=== PATIENT | female | born 1975 | race Caucasian/White ===

== ENCOUNTER 2017-10-24 05:08 | Inpatient (IN) | END 2017-10-27 20:00 | disposition home or self-care (01) | DRG 439 ==

== ENCOUNTER 2018-05-01 14:13 | Inpatient (IN) | payer MEDICAID ==
[~2018-05-01] VITALS: Ht 167.6 cm; Wt 106.6 kg
[~2018-05-01 14:13] MED LIST: DOCU-216 PO; HYDR-4011 PO
[2018-05-01] MEDS ORDERED: SOD CHLORIDE 0.9% 1,000 ML IV STA (16:07)
[2018-05-01] MEDS ORDERED: morphine 4 MG/ML VIAL IV STA (16:07)
[2018-05-01] MEDS ORDERED: LACTATED RINGER'S 1,000 ML IV STA (16:07)
[2018-05-01] MEDS ORDERED: ONDANSETRON 4 MG INJ IV STA (16:07)
[2018-05-01] MEDS ORDERED: ONDANSETRON 4 MG INJ IV PRN (18:00)
[2018-05-01] MEDS ORDERED: ACETAMINOPHEN 325 MG TAB PO PRN (18:00)
--- NOTE | 2018-05-01 18:19 | ERD ---
ER Documentation Chief Complaint Chief Complaint AP since wednesday; hx of pancreatitis; w/ vomiting today; LMP 04/28 HPI 42-year-old female presenting with upper abdominal pain that started today. She was here in October 2017 for similar pain and was diagnosed with gallstone pancreatitis. She states that since last week she has been having pain on and off but today the pain has been constant, nonradiating, and her entire upper abdomen. She had one episode of nonbloody and nonbilious vomiting today. The pain is constant, no alleviating or exacerbating factors. No fevers or chills. No diarrhea, hematochezia, melena, or constipation. She was supposed to follow- up with a surgeon outpatient for an elective cholecystectomy but she never did. ROS All systems reviewed and are negative except as per history of present illness. Medications Home Meds Discontinued Scripts Hydrocodone/Acetaminophen ([place] 5-325 Tablet) 1 Each Tablet, 1 EACH PO Q4H WHILE AWAKE PRN for PAIN, #21 TAB Prov:BETTY ANDRADE M. 10/27/17 Docusate Sodium (Dok) 100 Mg Capsule, 100 MG PO Q12H PRN for CONSTIPATION, #14 CAP Prov:BETTY ANDRADE M. 10/27/17 Allergies Allergies: Coded Allergies: No Known Allergy (Unverified , 05/01/18) PMhx/Soc Medical and Surgical Hx: pt denies Medical Hx, pt denies Surgical Hx History of Surgery: No Anesthesia Reaction: No Hx Neurological Disorder: No Hx Respiratory Disorders: No Hx Cardiac Disorders: No Hx Psychiatric Problems: No Hx Miscellaneous Medical Probl: No Hx Alcohol Use: No Hx Substance Use: No Hx Tobacco Use: No Smoking Status: Never smoker FmHx Family History: No diabetes Physical Exam Vitals Vital Signs Date Temp Pulse Resp B/P (MAP) Pulse Ox O2 O2 Flow FiO2 Time Delivery Rate 05/01/18 97.8 73 20 158/87 100 14:17 (110) Physical Exam Const: No acute distress, nontoxic Head: Atraumatic Eyes: Normal Conjunctiva ENT: Normal External Ears, Nose and Mouth. Neck: Full range of motion. No meningismus. Resp: Clear to auscultation bilaterally Cardio: Regular rate and rhythm, no murmurs Abd: Soft, right upper quadrant and epigastric tenderness to palpation with no rebound or guarding, non distended. Normal bowel sounds Skin: No petechiae or rashes Back: No midline or flank tenderness Ext: No cyanosis, or edema Neur: Awake and alert Psych: Normal Mood and Affect Result Diagram: 05/01/18 1615 05/01/18 1615 Results 24 hrs Laboratory Tests Test 05/01/18 16:15 White Blood Count 14.5 10^3/ul Red Blood Count 4.72 10^6/ul Hemoglobin 13.1 g/dl Hematocrit 40.6 % Mean Corpuscular Volume 86.0 fl Mean Corpuscular Hemoglobin 27.8 pg Mean Corpuscular Hemoglobin Concent 32.3 g/dl Red Cell Distribution Width 13.3 % Platelet Count 347 10^3/UL Mean Platelet Volume 9.7 fl Immature Granulocytes % 0.500 % Neutrophils % 81.2 % Lymphocytes % 12.9 % Monocytes % 5.0 % Eosinophils % 0.1 % Basophils % 0.3 % Nucleated Red Blood Cells % 0.0 /100WBC Immature Granulocytes # 0.070 10^3/ul Neutrophils # 11.7 10^3/ul Lymphocytes # 1.9 10^3/ul Monocytes # 0.7 10^3/ul Eosinophils # 0.0 10^3/ul Basophils # 0.1 10^3/ul Nucleated Red Blood Cells # 0.0 10^3/ul Urine Color OPAL Urine Clarity CLOUDY Urine pH 5.0 Urine Specific [place] 1.025 Urine Ketones 1+ mg/dL Urine Nitrite NEGATIVE mg/dL Urine Bilirubin 2+ mg/dL Urine Urobilinogen 2+ mg/dL Urine Leukocyte Esterase 2+ Bree/ul Urine Microscopic RBC 6 /HPF Urine Microscopic WBC 41 /HPF Urine Squamous Epithelial Cells MANY /HPF Urine Bacteria FEW /HPF Urine Mucus MODERATE /HPF Urine Hemoglobin 3+ mg/dL Urine Glucose NEGATIVE mg/dL Urine Total Protein 2+ mg/dl Urine Test NEGATIVE Sodium Level 140 mmol/L Potassium Level 3.6 mmol/L Chloride Level 104 mmol/L Carbon Dioxide Level 24 mmol/L Anion Gap 12 Blood Urea Nitrogen 10 mg/dl Creatinine 0.82 mg/dl Est Glomerular Filtrat Rate mL/min > 60 mL/min Glucose Level 111 mg/dl Calcium Level 9.3 mg/dl Total Bilirubin 1.1 mg/dl Direct Bilirubin 0.00 mg/dl Indirect Bilirubin 1.1 mg/dl Aspartate Amino Transf (AST/SGOT) 336 IU/L Alanine Aminotransferase (ALT/SGPT) 609 IU/L Alkaline Phosphatase 221 IU/L Total Protein 8.5 g/dl Albumin 4.7 g/dl Globulin 3.80 g/dl Albumin/Globulin Ratio 1.23 Lipase 45256 U/L Current Medications Medications Dose Sig/Marva Start Time Status Last (Trade) Ordered Route PRN Stop Time Admin Dose Reason Admin Sodium 1,000 ml @ Q1H STAT 05/01/18 DC 05/01/18 Chloride 1,000 mls/hr IV 16:07 16:36 05/01/18 17:06 Lactated 1,000 ml @ Q1H STAT 05/01/18 DC 05/01/18 Ringer's 1,000 mls/hr IV 16:07 16:36 05/01/18 17:06 Morphine 4 mg ONCE STAT 05/01/18 DC 05/01/18 Sulfate IV 16:07 16:36 (morphine) 05/01/18 16:09 Ondansetron 4 mg ONCE STAT 05/01/18 DC 05/01/18 HCl (Zofran IV 16:07 16:36 Inj) 05/01/18 16:09 Ondansetron 4 mg BRIDGE ORDER 05/01/18 HCl (Zofran PRN IV 18:00 Inj) NAUSEA AND/OR 05/02/18 17:59 VOMITING 650 mg ER BRIDGE 05/01/18 Acetaminophen PRN PO MILD 18:00 (Tylenol PAIN(1-3)OR 05/02/18 17:59 Tab) ELEVATED TEMP Procedures/MDM EMERGENT LABS AND DIAGNOSTIC STUDIES: Lab Results above were reviewed and interpreted by me. CBC: Leukocytosis CMP:no evidence of electrolyte abnormality or renal failure. AST, ALT, and alk phos elevated. No bili elevation. Lipase: Significantly elevated consistent with acute pancreatitis UA: no evidence of infection abnormal, possible evidence of infection. Urine culture sent and pending Radiology Results as interpreted by Radiology below were reviewed by Wai Antunez MD: Chest x-ray shows no acute abnormalities Ultrasound does not show evidence of acute cholecystitis Initial Nursing notes reviewed. Previous Medical Records requested via the Electronic Health Record. EMERGENCY DEPARTMENT COURSE / MEDICAL DECISION MAKING: Patient is presenting with upper abdominal pain. Vitals are stable and she is afebrile. Labs did show evidence of pancreatitis, likely secondary to choledocholithiasis, especially given liver enzyme and alk phos elevation. I doubt acute cholangitis. No evidence of cholecystitis. Symptoms are improved after IV fluids, antiemetics, and analgesics. Patient will be admitted for IV fluids, pain control, specialist consultation and stabilization. Accepting Care Team: Current data and ongoing care discussed. Time: Time of admission Primary Provider: Dr. Gilbert Mcdonough Diagnosis: Primary Impression: Pancreatitis Chronicity: acute Pancreatitis type: biliary Acute pancreatitis complication: unspecified Qualified Codes: K85.10 - Biliary acute pancreatitis without necrosis or infection Additional Impression: Transaminitis Condition: JUVENAL Chong MD May 01, 2018 18:19
--- NOTE | 2018-05-01 18:41 | HP ---
Date/Time of Note Date/Time of Note DATE: 05/01/18 TIME: 18:38 Assessment/Plan VTE Prophylaxis SCD applied (from Nsg): Yes Pharmacological prophylaxis: heparin Lines/Catheters IV Catheter Type (from Nrsg): Saline Lock Assessment/Plan Hospital Course 42 yo female who presents with pancreatitis, likely 2/2 gallstones - MRCP to see if stone in ducts - ERCP if needed, Chetty consulted - IVF - Trend LFTs - NPO for now Result Diagram: 05/01/18 1615 05/01/18 1615 Results 24hrs Laboratory Tests Test 05/01/18 16:15 White Blood Count 14.5 #H Red Blood Count 4.72 Hemoglobin 13.1 Hematocrit 40.6 Mean Corpuscular Volume 86.0 Mean Corpuscular Hemoglobin 27.8 L Mean Corpuscular Hemoglobin Concent 32.3 Red Cell Distribution Width 13.3 Platelet Count 347 Mean Platelet Volume 9.7 Immature Granulocytes % 0.500 H Neutrophils % 81.2 H Lymphocytes % 12.9 L Monocytes % 5.0 Eosinophils % 0.1 Basophils % 0.3 Nucleated Red Blood Cells % 0.0 Immature Granulocytes # 0.070 H Neutrophils # 11.7 H Lymphocytes # 1.9 Monocytes # 0.7 Eosinophils # 0.0 Basophils # 0.1 Nucleated Red Blood Cells # 0.0 Urine Color OPAL Urine Clarity CLOUDY A Urine pH 5.0 Urine Specific [place] 1.025 Urine Ketones 1+ H Urine Nitrite NEGATIVE Urine Bilirubin 2+ H Urine Urobilinogen 2+ H Urine Leukocyte Esterase 2+ H Urine Microscopic RBC 6 H Urine Microscopic WBC 41 H Urine Squamous Epithelial Cells MANY A Urine Bacteria FEW A Urine Mucus MODERATE Urine Hemoglobin 3+ H Urine Glucose NEGATIVE Urine Total Protein 2+ H Urine Test NEGATIVE Sodium Level 140 Potassium Level 3.6 Chloride Level 104 Carbon Dioxide Level 24 Anion Gap 12 Blood Urea Nitrogen 10 Creatinine 0.82 Est Glomerular Filtrat Rate mL/min > 60 Glucose Level 111 Calcium Level 9.3 Total Bilirubin 1.1 Direct Bilirubin 0.00 Indirect Bilirubin 1.1 Aspartate Amino Transf (AST/SGOT) 336 H Alanine Aminotransferase (ALT/SGPT) 609 H Alkaline Phosphatase 221 H Total Protein 8.5 H Albumin 4.7 Globulin 3.80 H Albumin/Globulin Ratio 1.23 Lipase 85827 H HPI/ROS Admit Date/Time Admit Date/Time Hx of Present Illness 42 yo female with h/o gallstones who presents with abdominal pain Has had RUQ pain off and on during the past week. Resolved for a couple days then came back severe today. Came to ED where lipase very elevated. CT showing gallstones. Patient with known history of gallstones she says. Denies etoh use. She has received morphine and is now comfortable PMH/Family/Social Past Medical History Medical History: no pertinent history Medications Current Medications Ondansetron HCl (Zofran Inj) 4 mg BRIDGE ORDER PRN IV NAUSEA AND/OR VOMITING; Start 05/01/18 at 18:00; Stop 05/02/18 at 17:59 Acetaminophen (Tylenol Tab) 650 mg ER BRIDGE PRN PO MILD PAIN(1-3)OR ELEVATED TEMP; Start 05/01/18 at 18:00; Stop 05/02/18 at 17:59 Coded Allergies: No Known Allergy (Unverified , 05/01/18) Past Surgical History Past Surgical Hx: no surgical history Family History Significant Family History: no pertinent family hx Social History Alcohol Use: none Smoking Status: Never smoker Drug Use: none Exam/Review of Systems Vital Signs Vitals Vital Signs Date Temp Pulse Resp B/P (MAP) Pulse Ox O2 O2 Flow FiO2 Time Delivery Rate 05/01/18 97.8 85 18 122/83 100 18:28 (96) Exam Constitutional: alert, oriented, well developed Psych: no complaints, nl mood/affect Head: normocephalic, atraumatic Eyes: nl conjunctiva, EOMI, nl lids, nl sclera, PERRL ENMT: nl external ears & nose, nl lips & teeth, nl nasal mucosa & septum Neck: supple, non-tender Respiratory: clear to auscultation, normal air movement Cardiovascular: regular rate and rhythm, nl pulses Gastrointestinal: soft, nl liver, spleen, non-tender Musculoskeletal: nl extremities to inspection Extremities: normal pulses Neurological: LINUX SYSTEM ENGINEER II-XII intact, nl mental status, nl speech, nl strength Skin: nl turgor; No rash or lesions Lymph: nl lymph nodes NANDO VILLANUEVA MD May 01, 2018 18:41
[2018-05-01] MEDS ORDERED: NACL 0.9% 3 ML SYG IV SCH (19:00)
[2018-05-01] MEDS ORDERED: HYDROmorphONE 0.5 MG/0.5 ML SYG IV PRN (19:00)
[2018-05-01 19:43] VITALS: BP 124/63; PULSE 64; RESP 18
[2018-05-01] MEDS: SOD CHLORIDE 0.9% 1,000 ML IV SCH (20:10)
[2018-05-01] MEDS: HYDROCODONE/APAP (5/325) TAB PO PRN (22:43)
[2018-05-01 22:58] VITALS: Ht 167.6 cm; Wt 106.6 kg
[2018-05-02 01:33] VITALS: BP 112/58; PULSE 64; RESP 18
[2018-05-02] MEDS: SOD CHLORIDE 0.9% 1,000 ML IV SCH ×4 (04:01→22:26)
[2018-05-02] MEDS: HYDROCODONE/APAP (5/325) TAB PO PRN (04:55)
[2018-05-02 07:24] VITALS: BP 109/58; PULSE 68; RESP 16
--- NOTE | 2018-05-02 12:19 | CONS ---
DATE OF ADMISSION: 05/01/2018 DATE OF CONSULTATION: TYPE OF CONSULTATION: Gastroenterology. Dear Dr. Hunt: Thank you for asking me to see Mrs. Byrnes in GI consultation. HISTORY OF PRESENT ILLNESS: The patient, as you know, is a 42-year-old female who is admitt ed at this time to the hospital because of abdominal pain. She was found to have gallstones and she was also found to have gallstone pancreatitis; hence, the GI consultation is requested. The patient says she was hospitalized here about 6 months ago for similar problem, but she was found to have gall stones and cholecystectomy was not performed because of pancreatitis. The patient has been having abdominal pain for the past several days and she has had nausea, little v omiting. No fever, no jaundice. PAST MEDICAL HISTORY: Includes similar episode in 10/2017. HOSPITALIZATIONS: Denies. REVIEW OF SYSTEM: Grossly unremarkable. SOCIAL HISTORY: The patient drinks alcohol occasionally. She works in a factory. PHYSICAL EXAMINATION: GENERAL: The patient is a 42-year-old female who at this time, she is alert. VITAL SIGNS: She is afebrile, temperature 98.1, blood pressure is 109/58. CARDIOVASCULAR: Normal heart sounds. RESPIRATORY: Normal breath sounds. ABDOMEN: Showed unremarkable findings. LABORATORY WORKUP: WBC is 8800. It came down from 14,500, hemoglobin is 10.7. The potassium is 3.8 . Bilirubin 0, indirect is 1.1, AST 336, ALT 609, alkaline phosphatase is 221. They did come down t o AST 141, ALT 368, alkaline phosphatase 147. The lipase is 33,000 yesterday. Today, it is 4161. DIAGNOSTIC DATA: Ultrasound showed evidence of gallstones and sludge within the gallbladder. CLINICAL IMPRESSION: The patient has evidence of gallstone pancreatitis, although it appears that sh e may have passed a stone from the ampulla, which caused a gallstone pancreatitis. Certainly one patricia uld rule out the possibility of a choledocholithiasis. PLAN: At this time, I recommend await for MRCP; however, ERCP will be performed to rule out choledoc holithiasis and then remove the stones. Meanwhile, I recommend surgical consultation. Once again, doctor, thank you for this consultation. Dictated By: RACHEL CASTRO/ALONSO Conf#: [id number] DID#: [id number] CC: NANDO HUNT MD;*EndCC*
[2018-05-02 14:54] VITALS: BP 128/61; PULSE 73; RESP 16
--- NOTE | 2018-05-02 15:05 | PN ---
Date/Time of Note Date/Time of Note DATE: 05/02/18 TIME: 15:00 Assessment/Plan VTE Prophylaxis Risk score (from Nsg)>0 risk: 1 Pharmacological prophylaxis: NA/contraindicated Pharm contraindication: low risk/ambulating Lines/Catheters IV Catheter Type (from Nrsg): Peripheral IV Urinary Cath still in place: No Assessment/Plan Hospital Course 1. Cholelithiasis with choledocholithiasis and gallstone pancreatitis MRCP shows cholelithiasis and choledocholithiasis Plan for ERCP today Continue n.p.o. status and IV fluids Surgery consultation with Dr. Ayala obtained Monitor lipase 2. Reactive leukocytosisresolved 3. Transaminitis secondary to choledocholithiasis Plan for ERCP Prophylaxis: Ambulation Result Diagram: 05/02/18 0517 05/02/18 0517 Results 24hrs Laboratory Tests Test 05/01/18 16:15 05/02/18 05:17 05/02/18 13:36 White Blood Count 14.5 #H 8.8 # Red Blood Count 4.72 3.83 L Hemoglobin 13.1 10.7 L Hematocrit 40.6 33.6 L Mean Corpuscular Volume 86.0 87.7 Mean Corpuscular Hemoglobin 27.8 L 27.9 L Mean Corpuscular Hemoglobin Concent 32.3 31.8 L Red Cell Distribution Width 13.3 13.5 Platelet Count 347 278 Mean Platelet Volume 9.7 9.8 Immature Granulocytes % 0.500 H 0.500 H Neutrophils % 81.2 H 61.3 Lymphocytes % 12.9 L 30.9 Monocytes % 5.0 5.9 Eosinophils % 0.1 1.1 Basophils % 0.3 0.3 Nucleated Red Blood Cells % 0.0 0.0 Immature Granulocytes # 0.070 H 0.040 H Neutrophils # 11.7 H 5.4 Lymphocytes # 1.9 2.7 Monocytes # 0.7 0.5 Eosinophils # 0.0 0.1 Basophils # 0.1 0.0 Nucleated Red Blood Cells # 0.0 0.0 Urine Color OPAL Urine Clarity CLOUDY A Urine pH 5.0 Urine Specific [place] 1.025 Urine Ketones 1+ H Urine Nitrite NEGATIVE Urine Bilirubin 2+ H Urine Urobilinogen 2+ H Urine Leukocyte Esterase 2+ H Urine Microscopic RBC 6 H Urine Microscopic WBC 41 H Urine Squamous Epithelial Cells MANY A Urine Bacteria FEW A Urine Mucus MODERATE Urine Hemoglobin 3+ H Urine Glucose NEGATIVE Urine Total Protein 2+ H Urine Test NEGATIVE Sodium Level 140 140 Potassium Level 3.6 3.8 Chloride Level 104 109 Carbon Dioxide Level 24 24 Anion Gap 12 7 Blood Urea Nitrogen 10 11 Creatinine 0.82 0.69 Est Glomerular Filtrat Rate mL/min > 60 > 60 Glucose Level 111 83 Calcium Level 9.3 8.4 Total Bilirubin 1.1 0.7 Direct Bilirubin 0.00 0.00 Indirect Bilirubin 1.1 0.7 Aspartate Amino Transf (AST/SGOT) 336 H 141 H Alanine Aminotransferase (ALT/SGPT) 609 H 368 H Alkaline Phosphatase 221 H 147 H Total Protein 8.5 H 6.3 # Albumin 4.7 3.4 # Globulin 3.80 H 2.90 Albumin/Globulin Ratio 1.23 1.17 Lipase 03217 H 4161 H Hemoglobin A1c 5.3 Prothrombin Time 12.8 Prothrombin Time Ratio 1.0 INR International Normalized Ratio 0.95 Subjective 24 Hr Interval Summary Constitutional: no complaints Exam/Review of Systems Vital Signs Vitals Vital Signs Date Temp Pulse Resp B/P (MAP) Pulse Ox O2 O2 Flow FiO2 Time Delivery Rate 05/02/18 98.7 73 16 128/61 100 Room Air 14:54 (83) Intake and Output 05/01/18 05/01/18 05/02/18 1414:59 22:59 06:59 IntakeIntake Total 1350 ml BalanceBalance 1350 ml Exam Constitutional: alert, oriented Cardiovascular: regular rate and rhythm Gastrointestinal: soft; No distended Musculoskeletal: nl extremities to inspection Medications Medications Current Medications Sodium Chloride 1,000 ml @ 125 mls/hr Q8H IV Last administered on 05/02/18at 14:02; Admin Dose 125 MLS/HR; Start 05/01/18 at 18:36 IV Flush (NS 3 ml) 3 ml PER PROTOCOL IV ; Start 05/01/18 at 19:00 Acetaminophen/ Hydrocodone Bitart ([place] (5/325)) 2 tab Q6H PRN PO SEVERE PAIN LEVEL 7-10 Last administered on 05/02/18at 04:55; Admin Dose 2 TAB; Start 05/01/18 at 19:00 Hydromorphone HCl (Dilaudid) 0.5 mg Q4H PRN IV SEVERE PAIN LEVEL 7-10; Start 05/01/18 at 19:00 LAUREN RESENDIZ May 02, 2018 15:05
[2018-05-02 20:14] VITALS: BP 140/65; PULSE 68; RESP 18
[2018-05-02] MEDS ORDERED: ZOLPIDEM 5 MG TAB PO ONE (22:18)
[2018-05-03] VITALS (16 sets, daily range): BP systolic 116–135; BP diastolic 61–74; PULSE 60–96; RESP 17–21
[2018-05-03] MEDS: SOD CHLORIDE 0.9% 1,000 ML IV SCH ×4 (01:34→20:00)
--- NOTE | 2018-05-03 13:31 | PREAC ---
Date/Time of Note Date/Time of Note DATE: 05/03/18 TIME: 13:29 Anesthesia Eval and Record Evaluation Time Pre-Procedure Interview DATE: 05/03/18 TIME: 13:29 Age 42 Sex female NPO: 8 hrs Preoperative diagnosis Biliary stones Planned procedure ERCP Past Medical History Past Medical History: None Surgery & Anesthesia Issues No known issue Meds Anticoagulation: No Beta Pippa within 24 hr: No Reason Beta Pippa not given: Pt. not on B-Pippa Discontinued Scripts Hydrocodone/Acetaminophen ([place] 5-325 Tablet) 1 Each Tablet, 1 EACH PO Q4H WHILE AWAKE PRN for PAIN, #21 TAB Prov:LUPETILA ChavisLAYTON M. 10/27/17 Docusate Sodium (Dok) 100 Mg Capsule, 100 MG PO Q12H PRN for CONSTIPATION, #14 CAP Prov:BETTY ANDRADE M. 10/27/17 Current Medications Sodium Chloride 1,000 ml @ 125 mls/hr Q8H IV Last administered on 05/03/18at 06:42; Admin Dose 125 MLS/HR; Start 05/01/18 at 18:36 IV Flush (NS 3 ml) 3 ml PER PROTOCOL IV ; Start 05/01/18 at 19:00 Acetaminophen/ Hydrocodone Bitart ([place] (5/325)) 2 tab Q6H PRN PO SEVERE PAIN LEVEL 7-10 Last administered on 05/02/18at 04:55; Admin Dose 2 TAB; Start 05/01/18 at 19:00 Hydromorphone HCl (Dilaudid) 0.5 mg Q4H PRN IV SEVERE PAIN LEVEL 7-10; Start 05/01/18 at 19:00 Meds reviewed: Yes Allergies Coded Allergies: No Known Allergy (Unverified , 05/01/18) Allergies Reviewed: Yes Labs/Studies Labs Reviewed: Reviewed by anesthesiologist Result Diagram: 05/03/1842 05/03/18 0542 Laboratory Tests 05/03/18 05:42 test: Negative Studies: ECG Pre-procedure Exam Last vitals Vital Signs Date Temp Pulse Resp B/P (MAP) Pulse Ox O2 O2 Flow FiO2 Time Delivery Rate 05/03/18 98.6 70 20 116/61 100 Room Air 07:50 (79) Airway: Adequate mouth opening, Adequate thyromental dist Mallampati: Mallampati II Teeth: Normal Lung: Normal Heart: Normal ASA Physical Status ASA physical status: 2 Emergency: None Planned Anesthetic General/MAC: ETT Planned Pain Management Parenteral pain med Pre-operative Attestations Prior to commencing anesthesia and surgery, the patient was re-evaluated, there was verification of: *The patient's identity *The results of appropriate recent lab work and preoperative vital signs *The above evaluation not changing prior to induction *Anesthetic plan, risk benefits, alternative and complications discussed with patient/family; questions answered; patient/family understands, accepts and wishes to proceed. JUAN DIEGO WALKER MD May 03, 2018 13:31
--- NOTE | 2018-05-03 13:54 | PN ---
Date/Time of Note Date/Time of Note DATE: 05/03/18 TIME: 13:53 Assessment/Plan VTE Prophylaxis Risk score (from Nsg)>0 risk: 1 Pharmacological prophylaxis: NA/contraindicated Pharm contraindication: low risk/ambulating Lines/Catheters IV Catheter Type (from Nrsg): Peripheral IV Urinary Cath still in place: No Assessment/Plan Hospital Course 1. Cholelithiasis with choledocholithiasis and gallstone pancreatitis MRCP shows cholelithiasis and choledocholithiasis Plan for ERCP today Continue n.p.o. status and IV fluids Surgery consultation with Dr. Ayala obtained Monitor lipase 2. Reactive leukocytosisresolved 3. Transaminitis secondary to choledocholithiasis Plan for ERCP Prophylaxis: Ambulation Result Diagram: 05/03/18 0542 05/03/18 0542 Results 24hrs Laboratory Tests Test 05/03/18 05:42 White Blood Count 9.2 Red Blood Count 3.85 L Hemoglobin 10.9 L Hematocrit 33.5 L Mean Corpuscular Volume 87.0 Mean Corpuscular Hemoglobin 28.3 L Mean Corpuscular Hemoglobin Concent 32.5 Red Cell Distribution Width 13.2 Platelet Count 270 Mean Platelet Volume 9.7 Immature Granulocytes % 0.500 H Neutrophils % 69.8 Lymphocytes % 23.1 Monocytes % 5.4 Eosinophils % 0.8 Basophils % 0.4 Nucleated Red Blood Cells % 0.0 Immature Granulocytes # 0.050 H Neutrophils # 6.4 Lymphocytes # 2.1 Monocytes # 0.5 Eosinophils # 0.1 Basophils # 0.0 Nucleated Red Blood Cells # 0.0 Sodium Level 138 Potassium Level 3.9 Chloride Level 110 Carbon Dioxide Level 19 L Anion Gap 9 Blood Urea Nitrogen 10 Creatinine 0.58 Est Glomerular Filtrat Rate mL/min > 60 Glucose Level 72 Calcium Level 8.6 Total Bilirubin 0.5 Direct Bilirubin 0.00 Indirect Bilirubin 0.5 Aspartate Amino Transf (AST/SGOT) 60 H Alanine Aminotransferase (ALT/SGPT) 264 H Alkaline Phosphatase 138 H Total Protein 6.7 Albumin 3.7 Globulin 3.00 Albumin/Globulin Ratio 1.23 Lipase 454 H Subjective 24 Hr Interval Summary Constitutional: no complaints Exam/Review of Systems Vital Signs Vitals Vital Signs Date Temp Pulse Resp B/P (MAP) Pulse Ox O2 O2 Flow FiO2 Time Delivery Rate 05/03/18 98.6 70 20 116/61 100 Room Air 07:50 (79) Intake and Output 05/02/18 05/02/18 05/03/18 1515:00 23:00 07:00 IntakeIntake Total 650 ml 1000 ml 1000 ml BalanceBalance 650 ml 1000 ml 1000 ml Exam Constitutional: alert, oriented Respiratory: clear to auscultation Cardiovascular: regular rate and rhythm Gastrointestinal: soft; No distended Musculoskeletal: nl extremities to inspection Medications Medications Current Medications Sodium Chloride 1,000 ml @ 125 mls/hr Q8H IV Last administered on 05/03/18at 06:42; Admin Dose 125 MLS/HR; Start 05/01/18 at 18:36 IV Flush (NS 3 ml) 3 ml PER PROTOCOL IV ; Start 05/01/18 at 19:00 Acetaminophen/ Hydrocodone Bitart ([place] (5/325)) 2 tab Q6H PRN PO SEVERE PAIN LEVEL 7-10 Last administered on 05/02/18at 04:55; Admin Dose 2 TAB; Start 05/01/18 at 19:00 Hydromorphone HCl (Dilaudid) 0.5 mg Q4H PRN IV SEVERE PAIN LEVEL 7-10; Start 05/01/18 at 19:00 LAUREN RESENDIZ May 03, 2018 13:54
[2018-05-03] MEDS ORDERED: MIDAZOLAM 1 MG/ML 2 ML INJ ONE (14:07)
[2018-05-03] MEDS ORDERED: FENTAnyl 50 MCG/ML VIAL ONE (14:08)
[2018-05-03] MEDS ORDERED: INDOMETHACIN 50 MG SUPP PR ONE (14:30)
[2018-05-03] MEDS ORDERED: PROPOFOL 20 ML ONE (15:00)
[2018-05-03] MEDS ORDERED: ONDANSETRON 4 MG INJ ONE (15:00)
[2018-05-03] MEDS ORDERED: ROCURONIUM 50 MG INJ ONE (15:00)
[2018-05-03] MEDS ORDERED: LIDOCAINE 2% (SDV) 5 ML INJ ONE (15:00)
[2018-05-03] MEDS ORDERED: GLYCOPYRROLATE 0.4 MG INJ ONE (15:00)
[2018-05-03] MEDS ORDERED: NEOSTIGMINE 3 MG/3 ML SYRINGE ONE (15:00)
[2018-05-03] MEDS ORDERED: CEFAZOLIN 1 GM INJ ONE (15:05)
--- NOTE | 2018-05-03 15:11 | OPR ---
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 sphincterotomy performed filling defect noted in distal cbd. balloon yielded sludge from distal cbd. cbd stent placed RACHEL OBRIEN MD May 03, 2018 15:11
--- NOTE | 2018-05-03 15:21 | PAC ---
Date/Time of Note Date/Time of Note DATE: 05/03/18 TIME: 15:21 Post-Anesthesia Notes Post-Anesthesia Note Last documented vital signs Vital Signs Date Temp Pulse Resp B/P (MAP) Pulse Ox O2 O2 Flow FiO2 Time Delivery Rate 05/03/18 98.6 70 20 116/61 100 Room Air 07:50 (79) Activity: WNL Respiratory function: WNL Cardiovascular function: WNL Mental status: Baseline Pain reasonably controlled: Yes Hydration appropriate: Yes Nausea/Vomiting absent: Yes Comments BP:120/56,pulse:78, spo2:100%, T:98,8 JUAN DIEGO WALKER MD May 03, 2018 15:21
[2018-05-03] MEDS ORDERED: hydrALAzine 20 MG INJ IV PRN (15:30)
[2018-05-03] MEDS ORDERED: LABETALOL HCL 20MG INJ IV PRN (15:30)
[2018-05-03] MEDS ORDERED: DIPHENHYDRAMINE 50 MG INJ IV PRN (15:30)
[2018-05-03] MEDS ORDERED: FENTAnyl 50 MCG/ML VIAL IV PRN (15:30)
[2018-05-03] MEDS ORDERED: HYDROmorphONE 1 MG/5 ML IV SYRINGE IV PRN ×2 (15:30)
[2018-05-03] MEDS ORDERED: METOCLOPRAMIDE 10 MG INJ IV PRN (15:30)
[2018-05-03] MEDS ORDERED: ONDANSETRON 4 MG INJ IV PRN (15:30)
[2018-05-03] MEDS ORDERED: MEPERIDINE 25 MG INJ IV PRN (15:30)
--- NOTE | 2018-05-03 15:49 | GILP ---
DATE OF PROCEDURE: NAME OF PROCEDURE: ERCP, sphincterotomy, balloon sweep and CBD stent placement. PREOPERATIVE DIAGNOSIS: The patient presenting with history of abdominal pain, evidence of gallstone pancreatitis, dilated common bile duct on the MRCP and CT. Stricture noted on the MRCP in the dista l bile duct to rule out malignant stricture, benign stricture, common bile duct stone. POSTOPERATIVE DIAGNOSES: The findings seem to be consistent with a benign distal CBD stricture. The dilated CBD filling defect noted in the CBD. Upon balloon sweeping, sludge was removed but no large stone was noted. DESCRIPTION OF PROCEDURE: After informed written consent was obtained, the patient was intubated by anesthesiologist, Dr. Casas. When the patient became somnolent, the Olympus video side-viewing duod enoscope was inserted into the oropharynx, then into the esophagus and subsequently into the stomach and then into the duodenum. Ampulla was located in normal location with normal morphology. All the ampulla appeared to be rather prominent at the papillary opening. By using the Dreamtome, cannulatio n of the common bile duct was performed. Common bile duct was found to be dilated. This seems to be evidence of a stricture in the distal common bile duct. Also upon careful observation there is evid ence of a large filling defect noted in the distal common bile duct. It was felt this could be a sto ne. At this time, by using the cutting wire of the Dreamtome, sphincterotomy was performed. About 1 2 mm cut of the ampulla was made by using the cutting wire of the Dreamtome. At this time, Dreamtome was removed. Stone extraction balloon was inserted into the common hepatic duct and attempts were m gilma to sweep the common bile duct. Also, it is to be noted the stricture in the distal bile duct. H ence, the large stone was not removed, but upon balloon sweeping, some amount of sludge was found to be exiting through the papillary opening and again after multiple sweepings, no large filling defect noted. At this time, a 10 x 7 Raymond type of endobiliary prosthesis was inserted into the common bile duct across the ampulla into the duodenum. Photographs were obtained and the procedure was term inated. PLAN: Recommend proceed with laparoscopic cholecystectomy. Dictated By: RACHEL CASTRO/ALONSO Conf#: [id number] DID#: [id number] CC: LAUREN RESENDIZ MD;*[facility]*
[2018-05-03] MEDS ORDERED: ZOLPIDEM 5 MG TAB PO ONE (21:00)
[2018-05-04 02:00] VITALS: BP 134/61; PULSE 72; RESP 18
[2018-05-04] MEDS: SOD CHLORIDE 0.9% 1,000 ML IV SCH ×2 (02:36→03:56)
[2018-05-04] MEDS: HYDROCODONE/APAP (5/325) TAB PO PRN ×2 (03:55→11:11)
[2018-05-04 07:35] VITALS: BP 124/63; PULSE 59; RESP 17
--- NOTE | 2018-05-04 12:37 | PDOCDIS ---
Discharge Instructions CONDITION [id number] Patient Condition: [id number] Good HOME CARE INSTRUCTIONS: [id number] Diet Instructions: [id number] Reduced Calorie ACTIVITY: [id number] Activity Restrictions: [id number] No Restrictions FOLLOW UP/APPOINTMENTS Follow-up Plan Follow-up with PCP in 1-2 weeks, follow-up with Dr. Browning of GI in 2-3 weeks LAUREN RESENDIZ May 04, 2018 12:37
--- NOTE | 2018-05-04 12:45 | DS ---
Date/Time of Note Date/Time of Note DATE: 05/04/18 TIME: 12:38 Discharge Summary Admission/Discharge Info Admit Date/Time May 01, 2018 at 17:52 Discharge Date/Time May 04, 2018 Discharge Diagnosis 1. Benign distal CBD stricture status post ERCP, sphincterotomy, balloon sweep and CBD stent placement No large stone noted with ERCP, no indication for lap cholecystectomy at this time per surgery Surgery consultation with Dr. Ayala was obtained 2. Pancreatitis secondary to above-resolving Patient tolerating a p.o. diet 3. Reactive leukocytosisresolved 4. Transaminitis secondary to above 5. Morbid obesity Lifestyle changes Patient Condition: Good Hospital Course Patient is a 42-year-old female with a history of obesity who presents with abdominal pain and was found to have pancreatitis and transaminitis. MRCP did show CBD dilation, GI consultation was obtained and ERCP showed benign CBD stricture status post sphincterotomy and balloon sweep with stent placement. Sludge was found but no no large stones were noted and per conversation with surgery there was no indication for a laparoscopic cholecystectomy. Patient's transaminitis and pancreatitis was resolving and patient was stable for DC. On day of discharge patient's vitals, labs and physical exam are stable patient has no acute complaints and questions are answered. Home Meds Discontinued Scripts Hydrocodone/Acetaminophen ([place] 5-325 Tablet) 1 Each Tablet, 1 EACH PO Q4H WHILE AWAKE PRN for PAIN, #21 TAB Prov:BETTY ANDRADE 10/27/17 Docusate Sodium (Dok) 100 Mg Capsule, 100 MG PO Q12H PRN for CONSTIPATION, #14 CAP Prov:BETTY ANDRADE 10/27/17 Follow-up Plan Follow-up with PCP in 1-2 weeks, follow-up with Dr. Browning of GI in 2-3 weeks Primary Care Provider Care Physician No Primary Time spent on discharge: > 30 minutes LAUREN RESENDIZ May 04, 2018 12:45
== END 2018-05-04 15:35 | disposition home or self-care (01) | DRG 444 ==
LOC: E/R 14:13 → 2NE 17:52
PROVIDERS: ADMIT Internal Medicine; ATTEND Internal Medicine
PROC: 0F798DZ Dilation of Common Bile Duct with Intraluminal Device, Via Natural or Artificial Opening Endoscopic (ICD-10-PCS; principal; 2018-05-03 13:00)
DX: K80.71 Calculus of gallbladder and bile duct without cholecystitis with obstruction (principal); K85.10 Biliary acute pancreatitis without necrosis or infection; E66.01 Morbid (severe) obesity due to excess calories; R74.0 Nonspecific elevation of levels of transaminase and lactic acid dehydrogenase [LDH]; Z68.37 Body mass index [BMI] 37.0-37.9, adult
CPT/HCPCS: 36415; 71045; 74181; 74330; 76705; 80053; 81001; 83036; 83690; 84703; 85025; 85610; 87086; 96374; 96375; C2617; J0690; J2250; J2270; J2405; J2710; J3010; J7030; J7120